=== PATIENT | male | born 1960 | race African-American/Black ===

== ENCOUNTER 2016-09-07 19:05 | Emergency (ER) | payer OTHER ==
[2016-09-07 19:15] VITALS: BP 158/99; PULSE 82; TEMP 98.1; BMI 32.5
--- NOTE | 2016-09-07 19:26 | PDOC ---
History of Present Illness - General History Source: Patient Exam Limitations: No Limitations <Arturo Ventura Tello - Last Filed: 09/07/16 19:36> - History of Present Illness Initial Comments: 09/07/16 19:37 The patient is a 55 year old male, with a significant past medical history of, who presents to the emergency department with increased low back pain for 2 days. He states he weight lifts at the gym and feels that his recent workouts may have exacerbated his pain. The patient reports experiencing this pain in the past after a workout. He denies any radiation of pain. He denies lower extremity weakness or tingling. He denies chest pain, shortness of breath, headache and dizziness. He denies fever, chills, nausea, vomit, diarrhea and constipation. 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 MEDICATIONS: reviewed ALLERGIES: As per nursing notes General: No fevers or chills, no weakness, no weight loss HEENT: No change in vision. No sore throat,. No ear pain CardioVascular: No chest pain or shortness of breath Respiratory:No cough, or wheezing. Gastrointestinal: no nausea, vomiting, diarrhea or constipation, No rectal bleeding Genitourinary: No dysuria, hematuria, or frequency Musculoskeletal: (+) lumbar pain. No joint pain or swelling Neurologic: No headache, vertigo, dizziness or loss of consciousness Psychiatric: No depression Skin: No rashes or easy bruising Endocrine: no increased thirst or abnormal weight change Allergic: no skin or latex allergy All other systems reviewed and normal GENERAL: The patient is awake, alert, and fully oriented, in no acute distress. HEAD: Normal with no signs of trauma. EYES: Pupils equal, round and reactive to light, extraocular movements intact, sclera anicteric, conjunctiva clear. EXTREMITIES: Normal range of motion, no edema. NEUROLOGICAL: Normal speech, normal gait. PSYCH: Normal mood, normal affect. MUSCULOSKELETAL: (+) Tenderness to palpation and spasm at right paraspinal area. No tenderness over sciatic notch. no spinal tenderness at thoracic, lumbar, or sacral regions. SKIN: Warm, Dry, normal turgor, no rashes or lesions noted. <Renata Giordano - Last Filed: 09/07/16 19:37> - General Chief Complaint: Pain, Acute Stated Complaint: BACK PAIN Time Seen by Provider: 09/07/16 19:26 Past History - Past Medical History Anemia: No Asthma: No Cancer: No Cardiac Disorders: No CVA: No COPD: No CHF: No Dementia: No Diabetes: No GI Disorders: No Disorders: No HTN: Yes Hypercholesterolemia: No Liver Disease: No Seizures: No Thyroid Disease: No - Immunization History Td Vaccination: Yes Immunization Up to Date: Yes - Psycho/Social/Smoking Cessation Hx Anxiety: No Suicidal Ideation: No Smoking Status: Yes Smoking History: Current every day smoker Have you smoked in the past 12 months: Yes Number of Cigarettes Smoked Daily: 20 Information on smoking cessation initiated: Yes 'Breaking Loose' booklet given: 09/07/16 Hx Alcohol Use: No (RARELY) Drug/Substance Use Hx: No Substance Use Type: None Hx Substance Use Treatment: No <Arturo Ventura I - Last Filed: 09/07/16 19:36> <Renata Giordano - Last Filed: 09/07/16 19:37> - Past Medical History Allergies/Adverse Reactions: Allergies Allergy/AdvReac Type Severity Reaction Status Date / Time No Known Allergies Allergy Verified 03/30/16 09:50 Home Medications: Ambulatory Orders Naproxen [Naprosyn -] 500 mg PO BID #14 tablet 09/07/16 *Physical Exam - Vital Signs Last Vital Signs Temp Pulse Resp BP Pulse Ox 98.1 F 82 16 158/99 98 09/07/16 19:10 09/07/16 19:10 09/07/16 19:10 09/07/16 19:10 09/07/16 19:10 <Arturo Ventura I - Last Filed: 09/07/16 19:36> - Vital Signs Last Vital Signs Temp Pulse Resp BP Pulse Ox 98.1 F 82 16 158/99 98 09/07/16 19:10 09/07/16 19:10 09/07/16 19:10 09/07/16 19:10 09/07/16 19:10 <Renata Giordano - Last Filed: 09/07/16 19:37> *DC/Admit/Observation/Transfer - Discharge Dispostion Admit: No <Arturo Ventura I - Last Filed: 09/07/16 19:36> - Attestations Scribe Attestion: 09/07/16 19:37 Documentation prepared by Renata Giordano, acting as biomedical engineer for Arturo Ventura MD <Renata Giordano - Last Filed: 09/07/16 19:37> Diagnosis at time of Disposition: Back pain without radiation - Discharge Dispostion Disposition: HOME Condition at time of disposition: Stable - Prescriptions Prescriptions: Naproxen [Naprosyn -] 500 mg PO BID #14 tablet - Referrals Referrals: Jose F Gray MD [Primary Care Provider] - - Patient Instructions Printed Discharge Instructions: Low Back Pain Additional Instructions: Take naproxen 1 tablet twice a day with food for the low back pain take the naproxen for one week. If not better in 1 week follow-up with your primary care doctor No working out at the gym or work until Sunday of next week. Return to the emergency department immediately with ANY new, persistent or worsening symptoms. Continue any medications as previously prescribed by your physician. You should follow up with your primary doctor as soon as possible regarding today's emergency department visit. . Please make sure your doctor reviews the results of your emergency evaluation. Thank you for coming to the Emergency Department today for your care. It was a pleasure to see you today. Please note that your evaluation is INCOMPLETE until you follow-up with your doctor. - Post Discharge Activity Work/School Note: Back to Work
[2016-09-07] MEDS ORDERED: NAPROXEN 500 MG TABLET (FP) PO ONE (19:32)
[2016-09-07] MEDS ORDERED: MAG HYDROX/AL HYDROX/SIMETH 355 ML ORAL.SUSP PO ONE (19:33)
[2016-09-07] MEDS ORDERED: MAG HYDROX/AL HYDROX/SIMETH 30 ML UNIT-DOSE CUP ONE (19:35)
[2016-09-07] MEDS ORDERED: NAPROXEN 500 MG TABLET (FP) ONE (19:35)
== END 2016-09-07 19:42 | disposition home or self-care (01) ==
LOC: FER 19:05
DX: M54.9 Dorsalgia, unspecified (principal)
CPT/HCPCS: 99282-25

== ENCOUNTER 2016-12-03 23:54 | Emergency (ER) | payer OTHER ==
[2016-12-04 00:02] VITALS: BP 132/78; PULSE 81; TEMP 98.6; BMI 31.0
--- NOTE | 2016-12-04 00:46 | PDOC ---
History of Present Illness - General Chief Complaint: Eye Problem Stated Complaint: FUNGUS ON BOTH FEET/PUS FROM LEFT EYE Time Seen by Provider: 12/04/16 00:06 - History of Present Illness Initial Comments: This 55-year-old man with a history of hypertension but no other significant issues presents with several week history of pruritic rash of bilateral feet and a few day history of crusting of his eyelids (left greater than right). No recent upper respiratory infection/fever. Patient describes mild discomfort associated with the inflammation of his eyelashes. No history of change in visual acuity Patient has been given 1% ketoconazole cream for his foot rash. He states that this has been inadequate for control of the itching and scaling of the rash. He has a small area of scaling, pruritic rash of the left proximal lower leg but no other examples of this no history of rash of the groin. Past History - Past Medical History Allergies/Adverse Reactions: Allergies Allergy/AdvReac Type Severity Reaction Status Date / Time No Known Allergies Allergy Verified 12/03/16 23:56 Home Medications: Ambulatory Orders Terbinafine HCl 250 mg PO DAILY #14 tablet 12/04/16 Tobramycin 0.3% Ophth Soln [Tobrex Ophthalmic Solution -] 1 drop OU Q4HWA #1 bottle 12/04/16 Anemia: No Asthma: No Cancer: No Cardiac Disorders: No CVA: No COPD: No CHF: No Dementia: No Diabetes: No GI Disorders: No Disorders: No HTN: Yes Hypercholesterolemia: No Liver Disease: No Seizures: No Thyroid Disease: No - Immunization History Td Vaccination: Yes Immunization Up to Date: Yes - Psycho/Social/Smoking Cessation Hx Anxiety: No Suicidal Ideation: No Smoking Status: Yes Smoking History: Current every day smoker Have you smoked in the past 12 months: Yes Number of Cigarettes Smoked Daily: 20 Information on smoking cessation initiated: Yes 'Breaking Loose' booklet given: 05/21/15 Hx Alcohol Use: No Drug/Substance Use Hx: No Substance Use Type: None Hx Substance Use Treatment: No Review of Systems - Review of Systems Able to Perform ROS?: Yes *Physical Exam - Vital Signs Last Vital Signs Temp Pulse Resp BP Pulse Ox 98.6 F 81 16 132/78 100 12/03/16 23:57 12/03/16 23:57 12/03/16 23:57 12/03/16 23:57 12/03/16 23:57 - Physical Exam Comments: GENERAL: HEAD: Normal with no signs of trauma. EYES: PERRLA, EOMI, sclera anicteric, bilateral conjunctival erythema (left greater than right); mild crusting of eyelashes. ENT: Ears normal, nares patent, oropharynx clear without exudates. Dry mucous membranes. NECK: Normal range of motion, supple without lymphadenopathy, JVD, or masses. LUNGS: Breath sounds equal, clear to auscultation bilaterally. No wheezes, and no crackles. HEART:Regular rate and rhythm, normal S1 and S2 without murmur, rub or gallop. ABDOMEN:.normal bowel sounds No guarding,tenderness or rebound.No masses No distention. EXTREMITIES: Normal range of motion, no edema. No clubbing or cyanosis. No erythema, or tenderness. NEUROLOGICAL: Cranial nerves II through XII grossly intact. Normal speech. No focal neurological deficits. MUSCULOSKELETAL: Back non-tender to palpation, no CVA tenderness SKIN: Scaly rash in the interdigital areas of bilateral feet and distal portions of plantar surfaces. No other rash evident Medical Decision Making - Medical Decision Making This 55-year-old man presents with 2 separate problems: A few day history of crusting and mild inflammation of eyelash margins of both eyes (left greater than right) and a persistent, pruritic, scaly rash of his feet. The ocular problem does not appear to be associated with any ongoing viral infection. Exam shows mild conjunctival inflammation and crusting of eyelashes. Clinical presentation here is most consistent with acute conjunctivitis and will be treated with tobramycin ophthalmic solution. 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 Work documentation has been provided for him. Patient's dermatological problem appears to be tenia pedis. He has had treatment for several weeks with ketoconazole cream but this does not appear to be effective (prescribed by his PMD). Prescription for terbinafine tablets 250 mg to be taken daily for 2 weeks will be sent to his pharmacy. Meanwhile, the patient should make plans to follow-up with his PMD within 1 week *DC/Admit/Observation/Transfer Diagnosis at time of Disposition: Tinea pedis of both feet Acute conjunctivitis of both eyes Qualifiers: Acute conjunctivitis type: bacterial Qualified Code(s): H10.33 - Unspecified acute conjunctivitis, bilateral - Discharge Dispostion Disposition: HOME Condition at time of disposition: Stable - Prescriptions Prescriptions: Terbinafine HCl 250 mg PO DAILY #14 tablet Tobramycin 0.3% Ophth Soln [Tobrex Ophthalmic Solution -] 1 drop OU Q4HWA #1 bottle - Patient Instructions Printed Discharge Instructions: Athlete's Foot, DI for Conjunctivitis Additional Instructions: Lamisil tablets 250 mg once daily for 2 weeks Tobrex ophthalmic solution 1 drop in each eye every 4 hours while awake for the next week No work until eye infection is treated for 2 days Follow-up with Dr. Gray within the next 2 weeks Return here if symptoms worsen - Post Discharge Activity Work/School Note: Back to Work
== END 2016-12-04 01:38 | disposition home or self-care (01) ==
LOC: FER 23:54
DX: H10.33 Unspecified acute conjunctivitis, bilateral (principal); B35.3 Tinea pedis; I10 Essential (primary) hypertension; F17.210 Nicotine dependence, cigarettes, uncomplicated
CPT/HCPCS: 99281-25

== ENCOUNTER 2017-01-20 10:19 | Emergency (ER) | payer OTHER ==
--- NOTE | 2017-01-20 10:22 | PDOC ---
History of Present Illness - General Chief Complaint: Rash Stated Complaint: RASH Time Seen by Provider: 01/20/17 10:22 History Source: Patient Exam Limitations: No Limitations - History of Present Illness Initial Comments: 56 yo M treated for tinea pedis in November of this year presents with worsening rash. He states that when he took the terbinafine, initially the rash to his foot improved, but after he finished the prescription, it returned, but not only to his left foot. He has similar lesions to the right foot, and scattered over his limbs and trunk that have developed over the past few weeks. He states that he has not been wearing white socks as he was instructed. He also wears shoes without socks as well. Denies fever, chills, swelling of his skin. Rash is extremely itchy. He has tried benadryl cream which did not help. He has also been applying lotions and vaseline for the itching. Past History - Past Medical History Allergies/Adverse Reactions: Allergies Allergy/AdvReac Type Severity Reaction Status Date / Time No Known Allergies Allergy Verified 12/03/16 23:56 Home Medications: Ambulatory Orders Griseofulvin, Microsize [Griseofulvin] 500 mg PO BID #84 tablet 01/20/17 Hydroxyzine HCl [Atarax -] 25 mg PO QID PRN #28 tablet 01/20/17 Anemia: No Asthma: No Cancer: No Cardiac Disorders: No CVA: No COPD: No CHF: No Dementia: No Diabetes: No GI Disorders: No Disorders: No HTN: Yes Hypercholesterolemia: No Liver Disease: No Seizures: No Thyroid Disease: No - Immunization History Td Vaccination: Yes Immunization Up to Date: Yes - Suicide/Smoking/Psychosocial Hx Smoking Status: Yes Smoking History: Current every day smoker Have you smoked in the past 12 months: Yes Number of Cigarettes Smoked Daily: 20 'Breaking Loose' booklet given: 05/21/15 Hx Alcohol Use: No Drug/Substance Use Hx: No Substance Use Type: None Hx Substance Use Treatment: No Review of Systems - Review of Systems Able to Perform ROS?: Yes Comments:: GENERAL/CONSTITUTIONAL: No fever or chills. No weakness. MUSCULOSKELETAL: No joint or muscle swelling or pain. No neck or back pain. SKIN: +Rash. ALLERGIC/IMMUNOLOGIC: No hives or skin allergy. *Physical Exam - Physical Exam Comments: GENERAL: Awake, alert, and fully oriented, in no acute distress EYES: PERRLA, EOMI, sclera anicteric, conjunctiva clear ENT: Auricles normal inspection, hearing grossly normal, nares patent, oropharynx clear without exudates. Moist mucosa. No mucosal lesions. EXTREMITIES: Normal range of motion, no edema. No clubbing or cyanosis. No cords , erythema, or tenderness NEUROLOGICAL: Cranial nerves II through XII grossly intact. Normal speech, normal gait SKIN: Warm, Dry, normal turgor. +Scattered scaly hyperpigmented lesions to the trunk, extremities, and feet. Medical Decision Making - Medical Decision Making Rash is consistent with tinea corporis. As the terbinafine did not completely resolve the infection, will give him a 6 week course of griseofulvin. Derm f/u ( he has seen Dr. Celaya in the past). *DC/Admit/Observation/Transfer Diagnosis at time of Disposition: Tinea corporis - Discharge Dispostion Disposition: HOME Condition at time of disposition: Stable Admit: No - Prescriptions Prescriptions: Hydroxyzine HCl [Atarax -] 25 mg PO QID PRN #28 tablet PRN Reason: For Itching Griseofulvin, Microsize [Griseofulvin] 500 mg PO BID #84 tablet - Referrals Referrals: Geraldine Celaya MD [Staff Physician] - - Patient Instructions Printed Discharge Instructions: DI for Tinea Corporis Additional Instructions: For soap, try Dr. Singh's Tea Tree oil soap(helps to kill fungus) or vanicream (no scents or chemicals in it). When you get out of the shower, make sure your skin is completely dry. Wear cotton socks and undershirts. Atarax for itching. Griseofulvin to treat the fungal infection- you will take this for a total of 4 weeks. - Post Discharge Activity Forms/Work/School Notes: Back to Work
[2017-01-20 10:29] VITALS: BP 139/94; PULSE 80; TEMP 98.6; BMI 31.7
== END 2017-01-20 10:54 | disposition home or self-care (01) ==
LOC: FER 10:19
DX: B35.4 Tinea corporis (principal); I10 Essential (primary) hypertension; F17.210 Nicotine dependence, cigarettes, uncomplicated
CPT/HCPCS: 99281-25

== ENCOUNTER 2017-08-07 08:35 | Inpatient (IN) | payer OTHER ==
--- NOTE | 2017-08-07 07:54 | HP ---
[facility] - Chief Complaint Chief Complaint: left hip pain - Past Medical History Allergies/Adverse Reactions: Allergies Allergy/AdvReac Type Severity Reaction Status Date / Time No Known Allergies Allergy Verified 07/31/17 15:57 - Current Medications Current Medications: Home Medications Medication Instructions Recorded Griseofulvin, Microsize 500 mg PO BID #84 tablet 01/20/17 [Griseofulvin] hydrOXYzine HCL [Atarax -] 25 mg PO QID PRN #28 tablet 01/20/17 Acitretin 25 mg PO DAILY 07/31/17 Amlodipine Besylate 10 mg PO DAILY 07/31/17 Satellite Physical Exam - Physical Examination General Appearance: Well Nourished, Well Developed, Alert & Oriented x3 ENT: Clear Lung: Normal air movement Heart: Regular rate & rhythm Extremities: Other (left hip- + ttp, decr rom, nvi xrays show grade 4 hip djd) Neurological: Intact, Alert, Oriented Satellite Impression/Plan - Impression/Plan Impression: left hip djd Operative Procedure: left anderson thr Date to be Performed: 08/07/17
[2017-08-07] MEDS ORDERED: MIDAZOLAM HCL 2 MG/2 ML SINGLE DOSE VIAL ONE ×2 (09:12→10:34)
[2017-08-07] MEDS ORDERED: PROPOFOL 20 ML ONE ×2 (09:12)
[2017-08-07] MEDS ORDERED: DEXAMETHASONE SOD PHOSPHATE 4 MG/1 ML VIAL ONE (09:13)
[2017-08-07] MEDS ORDERED: ONDANSETRON 4 MG/2 ML VIAL ONE (09:13)
[2017-08-07] MEDS ORDERED: LIDOCAINE HCL/PF 2% SDV 5ML VIAL ONE (09:13)
[2017-08-07] MEDS ORDERED: TRANEXAMIC ACID 1000 MG/10 ML VIAL ONE (09:13)
[2017-08-07] MEDS ORDERED: ceFAZolin SODIUM 1 GM VIAL ONE (09:13)
[2017-08-07] MEDS ORDERED: oxyCODONE HCL 10 MG SUSTAINED ACTING TABLET PO ONE (09:21)
[2017-08-07] MEDS ORDERED: CEFAZOLIN 2 GM in DEXTROSE 5%-WATER - 50 ML IVPB ONE (09:21)
[2017-08-07] MEDS ORDERED: GABAPENTIN 300 MG CAPSULE (FP) PO ONE (09:21)
[2017-08-07] MEDS ORDERED: CELECOXIB 200 MG CAPSULE PO ONE (09:21)
[2017-08-07] MEDS ORDERED: TRANEXAMIC ACID 1000 MG/10 ML VIAL IVPUSH ONE (09:21)
[2017-08-07 09:22] VITALS: BMI 32.1
[2017-08-07] MEDS ORDERED: BUPIVACAINE HCL/PF (5 MG/ML) 30 ML VIAL IJ ONE (10:34)
[2017-08-07] MEDS ORDERED: BUPIVACAINE HCL/PF 0.5% (5MG/ML) 10 ML VIAL ONE (11:34)
[2017-08-07] MEDS ORDERED: VANCOMYCIN 1,000 MG VIAL (RESTRICTED TO ID ONLY) IVPB ONE (12:47)
[2017-08-07] MEDS ORDERED: hydrOXYzine HCL 25 MG TABLET (FP) PO PRN (13:03)
[2017-08-07] MEDS ORDERED: MAG HYDROX/AL HYDROX/SIMETH 30 ML UNIT-DOSE CUP PO PRN (13:05)
[2017-08-07] MEDS ORDERED: ONDANSETRON 4 MG/2 ML VIAL IVPUSH PRN ×2 (13:05→14:22)
[2017-08-07] MEDS ORDERED: MAGNESIUM HYDROX 2400MG/30ML ORAL SUSPENSION 30 ML CUP PO PRN (13:05)
--- NOTE | 2017-08-07 13:07 | OP ---
Operative Note - Note: Operative Date: 08/07/17 ([place]) Pre-Operative Diagnosis: left hip djd Operation: left anderson thr Post-Operative Diagnosis: Same as Pre-op Surgeon: Vignesh Marvin Softball Winder: Kane Álvarez Anesthesiologist/COMPLETIONS ENGINEER: Jake Kerr Anesthesia: Spinal, Local Specimens Removed: femoral head Estimated Blood Loss (mls): 100 Operative Report Dictated: Yes
[2017-08-07] MEDS ORDERED: LACTATED RINGERS SOLUTION 1,000 ML IV SCH (13:15)
--- NOTE | 2017-08-07 14:09 | SPEC ---
DATE OF OPERATION: 08/07/2017 PREOPERATIVE DIAGNOSIS: Degenerative joint disease, left hip. POSTOPERATIVE DIAGNOSIS: Degenerative joint disease, left hip. PROCEDURE PERFORMED: Left total hip replacement with robotic-assisted navigation (MAKOplasty). SURGICAL ATTENDING: Vignesh Marvin MD AIRPLANE CLEANER: BLESSING Lord ANESTHESIA: Regional and spinal. CLOSURE: A Fanny total hip system with a No. 7 Accolade II stem, a 36+7.5 ceramic head, and a 56 press-fit acetabulum. No. 1 Vicryl for fascia, 0 and 2-0 subcutaneous, 3-0 Monocryl subcuticular with skin glue for skin, 4-0 undyed Vicryl for pin sites. ESTIMATED BLOOD LOSS: Less than 100 mL. COMPLICATIONS: None. CONDITION: To the recovery room in stable condition. DESCRIPTION OF PROCEDURE: The patient was taken to the operating room on August 07, 2017. General and regional anesthesia was administered by the anesthesiologist. IV Kefzol and TXA were administered prophylactically prior to the case. The patient was placed in the lateral decubitus position will all prominences well-padded. The left hip area was prepped and draped in the usual sterile fashion. Using 3 small stab incisions over the iliac crest, 3 threaded pins were drilled in power fashion through the 2 tables of the crest. These pins were fastened and the navigation array for the Chago navigation system. Next, a 12 to 15-cm curved longitudinal incision over the posterolateral aspect of the greater trochanter was incised. Hemostasis was achieved with Bovie cautery. Sharp dissection was carried down to level of the fascia. The fascia was opened the entire length of the incision, spreading the fibers of the gluteus jase in the direction of origin. A Charnley retractor was placed in this layer. Care was taken not to impale the sciatic nerve. The short external rotators were detached off the insertion of the greater trochanter and peeled off the capsule. A posterior capsulotomy was then performed. A check point was malleted into the greater trochanter and a point on the inferior pole of the patella was obtained as well. These 2 points were used to assess the preoperative offset and limb lengths of the hip. The hip was then dislocated. The femoral neck was then osteotomized down to the appropriate level as directed by the navigation device. Anterior and posterior retractors were placed, exposing the acetabulum. A circumferential labral excision was performed. A check point was malleted into the acetabulum as well. Multiple sites inside the acetabulum and around the rim were utilized to register the acetabulum with the navigation device. An excellent registration of less than 0.5 mm was obtained. The hip was then reamed with the appropriate reamer down to the appropriate depth, with the appropriate orientation and version as assessed on our preoperative plan for this patient. The reamer was removed and the acetabulum was inspected to have good bleeding surfaces throughout. The real acetabular cup was then malleted down into place, with the holes in the appropriate position, until an excellent fixation was obtained. No screws were necessary. The navigation device ensured appropriate orientation and version, with the depth as predetermined. The appropriate liner was then clipped into place. Attention was directed to the femur. The proximal femur was prepared by use a box chisel, a canal finder and serial broaches until the broach achieved excellent rigidity in the proximal femur with the appropriate version being applied. A calcar planer was used to smooth off the calcar flush with the trial components. A trial reduction with the appropriate head was done, and the hip was reduced. The hip was taken through a range of motion from full extension with external rotation to marked flexion, and was stable at 90 degrees of flexion. It was stable to marked abduction and internal rotation, with a positive hang test and negative telescoping. Limb lengths were ascertained visually as well as with the navigation device to be within the targeted range for this patient. The trial component was removed. The real component was then malleted into place. The head was cold welded to the trunnion, and the hip was reduced. Range of motion, stability and limb lengths were as described in the trial component. Then the hip was pulse antibiotic irrigated. Vancomycin powder was placed in the hip joint. The capsule was closed. The fascia was then closed as well using number 1 Vicryl interrupted suture, 0 and 2-0 subcutaneous, and 3-0 V-Loc for the skin. 4-0 undyed Vicryl was used to close the pin sites after the pins were removed. All check points were also removed. Sterile Aquacel dressing was applied. The patient was awakened from anesthesia and transferred into the supine position. Bilateral SCDs and an abduction pillow were placed. X-rays revealed excellent position of the components. The patient was transferred to the recovery room in stable condition, with no complications. Estimated blood loss was less than 100 mL. Denise [id number]
[2017-08-07] MEDS ORDERED: PROMETHAZINE HCL 25 MG/1 ML VIAL IVPB PRN (14:22)
[2017-08-07] MEDS ORDERED: oxyCODONE HCL 5 MG TABLET PO PRN ×3 (14:22→18:11)
[2017-08-07] MEDS ORDERED: ACETAMINOPHEN 325 MG TABLET (FP) PO SCH (14:30)
[2017-08-07] MEDS: ACETAMINOPHEN 325 MG TABLET (FP) PO SCH ×2 (14:45→20:52)
[2017-08-07] MEDS: CEFAZOLIN 2 GM/D5W 2 GM/50 ML ML IVPB SCH (20:51)
[2017-08-07] MEDS: oxyCODONE HCL 10 MG SUSTAINED ACTING TABLET PO SCH (21:46)
[2017-08-07] MEDS: SENNOSIDES/DOCUSATE COMBO (SENNA PLUS) TABLET (UD) PO SCH (21:46)
[2017-08-07] MEDS: GABAPENTIN 300 MG CAPSULE (FP) PO SCH (21:46)
[2017-08-07] MEDS ORDERED: GRISEOFULVIN MICROSIZE 500 MG PO SCH (22:00)
[2017-08-07] MEDS ORDERED: [UNRECOGNIZED DRUG - OTHER] PO SCH (22:00)
[2017-08-08] MEDS: ACETAMINOPHEN 325 MG TABLET (FP) PO SCH ×4 (03:21→23:02)
[2017-08-08] MEDS: CEFAZOLIN 2 GM/D5W 2 GM/50 ML ML IVPB SCH (03:22)
[2017-08-08] MEDS: oxyCODONE HCL 5 MG TABLET PO PRN ×2 (03:29→17:30)
[2017-08-08] MEDS: ASPIRIN 325 MG TABLET PO SCH (08:00)
--- NOTE | 2017-08-08 08:11 | PN ---
Progress Note (short form) - Note Progress Note: Ortho Pt seen and examined s/p left anderson thr pod #1 Selected Entries 04/13/16 08/08/17 06:00 06:00 Temperature 98.8 F 98.3 F Pulse Rate 78 89 Respiratory 20 20 Rate Blood Pressure 115/68 141/68 dressing c/d/i, calf soft, nt nvi cbc pending a/p PT hip precautions dvt ppx pain control d/c home tomorrow if stable
[2017-08-08 08:51] LABS: HEMATOCRIT 36.4 % (35.4-49); HEMOGLOBIN 12.6 GM/dl (11.7-16.9); MCH 33.5 pg (25.7-33.7); MCHC 34.7 g/dl (32.0-35.9); MEAN CELL VOLUME 96.6 fl (80-96); PLATELET COUNT 204 K/MM3 (134-434); RBC 3.76 M/mm3 (4.00-5.60); RDW 11.8 % (11.9-15.9); WHITE BLOOD COUNT 8.4 K/mm3 (4.0-10.8)
[2017-08-08] MEDS: PANTOPRAZOLE 40 MG TABLET (FP) PO SCH (09:29)
[2017-08-08] MEDS: SENNOSIDES/DOCUSATE COMBO (SENNA PLUS) TABLET (UD) PO SCH ×2 (09:29→23:04)
[2017-08-08] MEDS: oxyCODONE HCL 10 MG SUSTAINED ACTING TABLET PO SCH ×2 (09:29→23:03)
[2017-08-08] MEDS: GABAPENTIN 300 MG CAPSULE (FP) PO SCH ×2 (09:29→23:04)
[2017-08-08] MEDS: MULTIVITAMINS (DAILY MVI) TABLET (FP) PO SCH (09:30)
[2017-08-08] MEDS ORDERED: ACITRETIN 25 MG PO SCH (10:00)
[2017-08-08] MEDS: amLODIPine BESYLATE 10 MG TABLET (FP) PO SCH (10:00)
--- NOTE | 2017-08-08 11:48 | PN ---
Progress Note, Physician Chief Complaint: s/p left total hip replacement with [place] History of Present Illness: under spinal anesthesia and paravertebral block post op day one - Current Medication List Current Medications: Active Medications Acetaminophen (Tylenol -) 650 mg PO Q6H [facility] Stop: 08/10/17 14:44 Last Admin: 08/08/17 09:30 Dose: 650 mg Al Hydroxide/Mg Hydroxide (Mylanta Oral Suspension -) 30 ml PO Q4H PRN PRN Reason: DYSPEPSIA Amlodipine Besylate (Norvasc -) 10 mg PO DAILY [facility] Aspirin (Asa -) 325 mg PO DAILY@0800 [facility] Last Admin: 08/08/17 08:00 Dose: 325 mg Fentanyl (Sublimaze Injection -) 50 mcg IVPUSH [id number] PRN PRN Reason: PAIN-PACU ORDER X 4 DOSES ONLY Gabapentin (Neurontin -) 300 mg PO BID [facility] Last Admin: 08/08/17 09:29 Dose: 300 mg Hydroxyzine HCl (Atarax -) 25 mg PO QID PRN PRN Reason: FOR ITCHING Magnesium Hydroxide (Milk Of Magnesia -) 30 ml PO PRN PRN PRN Reason: CONSTIPATION Multivitamins/Minerals/Vitamin C (Tab-A-Vit -) 1 tab PO DAILY [facility] Last Admin: 08/08/17 09:30 Dose: 1 tab Non-Formulary Medication (Acitretin [Acitretin]) 25 mg PO DAILY [facility] Non-Formulary Medication (Griseofulvin, Microsize [Griseofulvin]) 500 mg PO BID [facility] Ondansetron HCl (Zofran Injection) 4 mg IVPUSH Q6H PRN PRN Reason: NAUSEA Oxycodone HCl (Oxycontin -) 10 mg PO BID [facility] Stop: 08/10/17 14:23 Last Admin: 08/08/17 09:29 Dose: 10 mg Oxycodone HCl (Roxicodone -) 15 mg PO Q3H PRN PRN Reason: PAIN LEVEL 6-10 Last Admin: 08/07/17 18:32 Dose: 15 mg Oxycodone HCl (Roxicodone -) 10 mg PO Q3H PRN PRN Reason: PAIN LEVEL 1-5 Last Admin: 08/08/17 03:29 Dose: 10 mg Pantoprazole Sodium (Protonix -) 40 mg PO DAILY [facility] Last Admin: 08/08/17 09:29 Dose: 40 mg Promethazine HCl (Phenergan Injection -) 12.5 mg IVPB Q6H PRN PRN Reason: NAUSEA-FOR RESCUE AFTER 15 MIN Senna/Docusate Sodium (Pericolace -) 2 tablet PO BID [facility] Last Admin: 08/08/17 09:29 Dose: 2 tablet - Objective Vital Signs: Vital Signs Temperature 98.3 F 08/08/17 06:00 Pulse Rate 89 08/08/17 06:00 Respiratory Rate 20 08/08/17 09:00 Blood Pressure 141/68 08/08/17 06:00 O2 Sat by Pulse Oximetry (%) 92 L 08/08/17 09:00 Constitutional: Yes: Well Nourished Cardiovascular: Yes: WNL Respiratory: Yes: WNL Gastrointestinal: Yes: WNL Labs: CBC, BMP 08/08/17 08:00 Assessment/Plan Pain adequately controlled, no headache or other adverse effect of anesthetic, dept of anesthesia will sign off care at this time.
[2017-08-09] MEDS: ACETAMINOPHEN 325 MG TABLET (FP) PO SCH ×2 (05:17→08:45)
[2017-08-09] MEDS: oxyCODONE HCL 5 MG TABLET PO PRN (06:32)
[2017-08-09] MEDS: ASPIRIN 325 MG TABLET PO SCH (07:59)
--- NOTE | 2017-08-09 08:24 | PN ---
Progress Note (short form) - Note Progress Note: Ortho Pt seen and examined s/p left anderson thr pod #2 Selected Entries 08/09/17 06:00 Temperature 98.8 F Pulse Rate 98 H Respiratory 18 Rate Blood Pressure 117/68 Laboratory Tests 08/08/17 08:00 WBC 8.4 D Hgb 12.6 D Hct 36.4 Plt Count 204 dressing c/d/i, calf soft, nt nvi a/p PT hip precautions dvt ppx pain control d/c home today f/u in 1 week
--- NOTE | 2017-08-09 08:25 | DS ---
Physical Examination Vital Signs: Vital Signs Temperature 98.8 F 08/09/17 06:00 Pulse Rate 98 H 08/09/17 06:00 Respiratory Rate 18 08/09/17 06:00 Blood Pressure 117/68 08/09/17 06:00 O2 Sat by Pulse Oximetry (%) 90 L 08/09/17 06:00 Discharge Summary Reason For Visit: OSTEOARTHRITIS Procedures: Principal: s/p left anderson thr Hospital Course: admitted for elective left anderson thr, uneventful post-op, stable for d/c Condition: Good - Instructions Diet, Activity, Other Instructions: Post-op Instructions-Total Hip Replacement Call the office for a follow-up appointment in 1 week - [phone] Aspirin 325mg daily for 6 weeks. Pain medication was sent into your pharmacy. Apply Graduated Compression Stockings (TEDs) to both lower extremities- remove daily for hygiene ONLY Apply Sequential Compression Device (SCDs) to both Lower extremities remove for PT and hygiene ONLY Apply cold packs to affected area for 15 minutes every 2 hours. Physical Therapist will come to your home for the first 5 days. You will be set up with outpatient PT at your first post-operative visit. Patient may ambulate as tolerated-encourage self care (at least every 2-3 hours while awake) with walker or cane Maintain Aquacel (waterproof) dressing to operative wound (will be removed by surgeon at first office visit) Shower with Aquacel dressing in place-if Aquacel integrity compromised, remove and apply dry sterile dressing and notify Orthopedist. DO NOT SHOWER unless Orthopedists approves without Aquacel dressing CONTACT THE OFFICE FOR ANY CHANGE IN YOUR CONDITION (for example-fever greater than 102 degrees, excessive bleeding from operative site, purulent drainage, severe swelling or pain) GO TO THE EMERGENCY ROOM IF THERE IS A MEDICAL EMERGENCY Hip Precautions: * Keep a rolled towel under affected heel while in bed or chair (to keep knee in extension) * Dependent upon approach: * Posterior - do not cross legs; do not sit on low chairs or toilets. * If you have any questions, please do not hesitate to call the office - [phone]. Referrals: Vignesh Marvin MD [Staff Physician] - Disposition: VNS/HOME HEALTH CARE - Home Medications Comprehensive Discharge Medication List: Ambulatory Orders Griseofulvin, Microsize [Griseofulvin] 500 mg PO BID #84 tablet 01/20/17 hydrOXYzine HCL [Atarax -] 25 mg PO QID PRN #28 tablet 01/20/17 Acitretin 25 mg PO DAILY 07/31/17 Amlodipine Besylate 10 mg PO DAILY 07/31/17 Aspirin [ASA -] 325 mg PO DAILY@0800 tablet 08/07/17 Oxycodone HCl/Acetaminophen [Percocet 5-325 mg Tablet] 1 - 2 tab PO Q6H #50 tab MDD 8 08/07/17
[2017-08-09 08:26] LABS: HEMATOCRIT 32.5 % (35.4-49); HEMOGLOBIN 10.8 GM/dl (11.7-16.9); MCH 32.2 pg (25.7-33.7); MCHC 33.1 g/dl (32.0-35.9); MEAN CELL VOLUME 97.1 fl (80-96); MEAN PLT VOLUME 8.3 fl (7.5-11.1); PLATELET COUNT 175 K/MM3 (134-434); RBC 3.35 M/mm3 (4.00-5.60); RDW 11.6 % (11.9-15.9); WHITE BLOOD COUNT 10.2 K/mm3 (4.0-10.8)
[2017-08-09] MEDS: SENNOSIDES/DOCUSATE COMBO (SENNA PLUS) TABLET (UD) PO SCH (09:57)
[2017-08-09] MEDS: oxyCODONE HCL 10 MG SUSTAINED ACTING TABLET PO SCH (09:57)
[2017-08-09] MEDS: PANTOPRAZOLE 40 MG TABLET (FP) PO SCH (09:58)
[2017-08-09] MEDS: GABAPENTIN 300 MG CAPSULE (FP) PO SCH (09:58)
[2017-08-09] MEDS: amLODIPine BESYLATE 10 MG TABLET (FP) PO SCH (09:58)
[2017-08-09] MEDS: MULTIVITAMINS (DAILY MVI) TABLET (FP) PO SCH (09:58)
[2017-08-09 14:31] VITALS: BP 128/66; PULSE 89; TEMP 98.7
--- NOTE | 2017-08-12 19:16 | PATH ---
Surgical Pathology Report Patient Name: VLAD XAVIER Med. Rec. #: [id number] /Age/Gender: 1960 (Age: 56) / M Account: [id number] Location: [facility] Taken: 08/07/2017 Received: 08/07/2017 Reported: 08/12/2017 Physicians: Vignesh Marvin M.D. Specimen(s) Received LEFT FEMORAL HEAD Clinical History Left hip osteoarthritis Final Diagnosis FEMORAL HEAD, LEFT, TOTAL HIP REPLACEMENT: DEGENERATIVE JOINT DISEASE. Electronically Signed Gladis Dueñas M.D. Gross Description Received in formalin, labeled "left femoral head," is a 4.7 x 4.7 x 4.7 cm. femoral head with a 1.2 cm in length portion of femoral neck attached. The margin of resection is smooth. There is a 3.0 cm in greatest dimension area of eburnation present. The remaining articular surface is crain-yellow and diffusely granular and nodular. The underlying trabecular bone is yellow and hard. A ambulatory services representative section is submitted in one cassette, following decalcification. 08/08/2017 [facility]08/08/2017
== END 2017-08-09 16:33 | disposition home health service (06) | DRG 470 ==
LOC: FM/S 08:35
PROVIDERS: ADMIT Orthopaedic Surgery; ATTEND Orthopaedic Surgery
PROC: 8E0W0CZ Robotic Assisted Procedure of Trunk Region, Open Approach (ICD-10-PCS; 2017-08-07)
PROC: 0SRB03A Replacement of Left Hip Joint with Ceramic Synthetic Substitute, Uncemented, Open Approach (ICD-10-PCS; principal; 2017-08-07 11:00)
DX: M16.12 Unilateral primary osteoarthritis, left hip (principal)
CPT/HCPCS: 36415; 73502-TC-LT-FY; 85027; 88304-TC; 88311-TC; 94010; 94760; 97116-GP; 97162-GP

== ENCOUNTER 2018-04-03 13:36 | Emergency (ER) | payer OTHER ==
[2018-04-03 13:51] VITALS: TEMP 98.1; BMI 33.2
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
[2018-04-03] MEDS ORDERED: IBUPROFEN 400 MG TABLET (FP) PO ONE ×2 (14:22→14:48)
== END 2018-04-03 15:29 | disposition home or self-care (01) ==
LOC: FER 13:36
CPT/HCPCS: 72050-TC-FY; 99283-25

== ENCOUNTER 2018-06-28 18:47 | Inpatient (IN) | payer OTHER ==
--- NOTE | 2018-06-28 18:59 | PDOC ---
Rapid Medical Evaluation Time Seen by Provider: 06/28/18 18:57 Medical Evaluation: Allergies Allergy/AdvReac Type Severity Reaction Status Date / Time shrimp Allergy Intermediate Rash Verified 04/03/18 13:39 06/28/18 18:57 I performed a brief in-person evaluation of this patient. Chief complaint: Bilat non-traumatic foot pain and swelling Pertinent physical exam findings: P 111. Extensive erythema and edema to bilateral lower extremities, calves tender bilaterally I have ordered the following: CBC, CMP, PT/INR, BNP. Had negative LE duplex bilat as outpatient 06/26. On Bactrim from outside hospital. Patient to proceed to the ED for further evaluation. Discharge Disposition - Diagnosis Leg swelling - Referrals Referrals: Jose F Gray MD [Primary Care Provider] - - Patient Instructions - Post Discharge Activity
[2018-06-28 19:34] LABS: BASO % 0.7 % (0-2.0); EOS % 4.2 % (0-4.5); HEMATOCRIT 38.9 % (35.4-49); HEMOGLOBIN 13.3 GM/dL (11.7-16.9); LYMPH % 22.3 % (8-40); MCH 34.9 pg (25.7-33.7); MCHC 34.1 g/dl (32.0-35.9); MEAN CELL VOLUME 102.2 fl (80-96); MEAN PLT VOLUME 8.1 fl (7.5-11.1); MONO % 9.6 % (3.8-10.2); NEUT % 63.2 % (42.8-82.8); PLATELET COUNT 223 K/MM3 (134-434); RBC 3.81 M/mm3 (4.00-5.60); RDW 12.8 % (11.9-15.9); WHITE BLOOD COUNT 8.3 K/mm3 (4.0-10.0)
[2018-06-28 19:45] LABS: URINE APPEARANCE CLEAR; URINE BILIRUBIN NEGATIVE (<2.0 mg/dL); URINE COLOR YELLOW; URINE GLUCOSE (UA) NEGATIVE (NEGATIVE); URINE KETONE TRACE (NEGATIVE); URINE LEUK ESTERASE NEGATIVE (NEGATIVE); URINE NITRITE NEGATIVE (NEGATIVE); URINE PROTEIN NEGATIVE (NEGATIVE); URINE UROBILINOGEN NEGATIVE mg/dL (0.2-1.0)
[2018-06-28 19:48] LABS: INR 0.97 (0.83-1.09); PROTHROMBIN TIME (PATIENT) 11.4 SEC (9.7-13.0)
[2018-06-28 20:47] LABS: ALBUMIN 3.5 g/dl (3.4-5.0); ALK PHOS 61 U/L (45-117); ANION GAP 6 MMOL/L (8-16); BILIRUBIN,TOTAL 0.4 mg/dL (0.2-1); BLOOD UREA NITROGEN 14 mg/dL (7-18); CALCIUM 8.5 mg/dL (8.5-10.1); CHLORIDE 108 mmol/L (98-107); CO2 27 mmol/L (21-32); CREATININE 1.1 mg/dL (0.55-1.3); GLUCOSE,RANDOM 103 mg/dL (74-106); N-TERMINAL BNP 15.1 pg/ml (5-125); POTASSIUM 4.2 mmol/L (3.5-5.1); SGOT/AST 25 U/L (15-37); SGPT/ALT 25 U/L (13-61); SODIUM 141 mmol/L (136-145); TOT PROT 6.7 g/dl (6.4-8.2)
--- NOTE | 2018-06-28 21:01 | PDOC ---
Attending Attestation - HPI HPI: The patient is a 57 year old male, with a significant PMH of Psoriasis and HTN, who presents to the emergency department today complaining of bilateral lower extremity edema, erythema, and pain for approximately 2 weeks. He describes his leg pain as a burning sensation. Patient was given Bactrim, without any relief, and Cadista, which exacerbated his symptoms. Recent doppler study was negative for DVT. The patient denies chest pain, shortness of breath, headache and dizziness. Denies fever, chills, nausea, vomit, diarrhea and constipation. Denies dysuria, frequency, urgency and hematuria. Allergies: Shrimp Past surgical history: Right total hip replacement Social history: Current smoker (half a pack a day) PCP: Dr. Jose F Gray 06/28/18 22:44 - Physicial Exam PE: GENERAL: The patient is in no acute distress. HEAD: Normal with no signs of trauma. EYES: PERRLA, EOMI, sclera anicteric, conjunctiva clear. ENT: Ears normal, nares patent, oropharynx clear without exudates. Moist mucous membranes. NECK: Normal range of motion, supple without lymphadenopathy, JVD, or masses. LUNGS: Breath sounds equal, clear to auscultation bilaterally. No wheezes, and no crackles. HEART:Regular rate and rhythm, normal S1 and S2 without murmur, rub or gallop. ABDOMEN: Soft, nontender, normoactive bowel sounds. No guarding, no rebound. No masses palpable. EXTREMITIES: +Bilateral lower extremity edema. +Bilateral lower extremity erythema. +Bilateral lower extremities tender to palpation. +Underlying psoriasis present bilaterally on lower extremities. Normal range of motion. No clubbing or cyanosis. NEUROLOGICAL: Cranial nerves II through XII grossly intact. Normal speech. No focal neurological deficits. MUSCULOSKELETAL: Back non-tender to palpation, no CVA tenderness SKIN: Warm, Dry, normal turgor, no rashes or lesions noted. 06/28/18 22:44 - Medical Decision Making Documentation prepared by ANGELA Rosales, acting as vp medical for Lizzette Watkins MD. 06/28/18 22:44 <Payton Sparks - Last Filed: 06/28/18 22:44> - Resident Resident Name: Angelita Asencio - ED Attending Attestation I have performed the following: I have examined & evaluated the patient, The case was reviewed & discussed with the resident, I agree w/resident's findings & plan, Exceptions are as noted - Medical Decision Making 06/30/18 00:23 57 yo m presenting to the ER due to lower extremity edema and erythema Pt has noted leg pain and swelling was seen by PMD, started on Bactrim Pt denies improvement in his symptoms He was also started on Steroids which he thinks severely worsened his symptoms No fevers or chills No trauma Pt is ambulatory but legs are tender to palpation 06/30/18 00:26 Laboratory Tests 06/28/18 06/28/18 06/28/18 19:18 19:18 19:20 WBC 8.3 Hgb 13.3 Hct 38.9 Plt Count 223 INR 0.97 BUN 14 Creatinine 1.1 06/30/18 00:[address] Gray Will give abx clinical Impression: cellulitis, initial presentation <Lizzette Watkins - Last Filed: 06/30/18 00:29>
[2018-06-28] MEDS ORDERED: LACTATED RINGERS SOLUTION 1000 ML INFUS.BAG IV ONE (22:21)
[2018-06-28] MEDS ORDERED: VANCOMYCIN 1 GM in D5W (PRE-DOCKED) 1,000 MG/250 ML IVPB ONE (22:21)
--- NOTE | 2018-06-28 22:27 | PDOC ---
History of Present Illness - General Chief Complaint: Edema Stated Complaint: EVALUATION Time Seen by Provider: 06/28/18 18:57 History Source: Patient Exam Limitations: No Limitations - History of Present Illness Initial Comments: 06/28/18 22:22 Pt is a 57yo M with PMH of Psoriasis, HTN presenting to ED with bilateral lower extremity swelling, erythema and pain. Pt states he has had this for a week or two now. He went to a hospital one week ago and was given Bactrim but it was not helping. He had a doppler study done 06/26 which was negative for DVT. He endorses leg pain which feels like a burning. Swelling is in the feet and calves. He denies fever, chills, chest pain, cough, SOB, palpitations, abdominal pain, n/v/d, recent travel, recent surgeries, history of clotting. PMD: Isaac PMH: see hpi PSH: bilateral hip replacement Meds: see med rec Allergies: nkda Social: smokes 1/2ppd Past History - Past Medical History Allergies/Adverse Reactions: Allergies Allergy/AdvReac Type Severity Reaction Status Date / Time shrimp Allergy Intermediate Rash Verified 04/03/18 13:39 Home Medications: Ambulatory Orders NK [No Known Home Medication] 06/29/18 Norvasc - See Protocol PO ONCE 06/29/18 Anemia: No Asthma: No Cancer: No Cardiac Disorders: No CVA: No COPD: No CHF: No Dementia: No Diabetes: No GI Disorders: No Disorders: No HTN: Yes Hypercholesterolemia: No Liver Disease: No Seizures: No Thyroid Disease: No - Surgical History Abdominal Surgery: No Appendectomy: No Cardiac Surgery: No Cholecystectomy: No Lung Surgery: No Neurologic Surgery: No Orthopedic Surgery: Yes (R THR 2017) - Immunization History Td Vaccination: Yes Immunization Up to Date: Yes - Suicide/Smoking/Psychosocial Hx Smoking Status: Yes Smoking History: Never smoked Have you smoked in the past 12 months: Yes Number of Cigarettes Smoked Daily: 10 'Breaking Loose' booklet given: 05/21/15 Hx Alcohol Use: No Drug/Substance Use Hx: No Substance Use Type: None Hx Substance Use Treatment: No Review of Systems - Review of Systems Constitutional: No: Chills, Fever, Weakness HEENTM: No: Symptoms Reported Respiratory: No: Cough, Shortness of Breath Cardiac (ROS): No: Chest Pain, Lightheadedness, Palpitations, Syncope ABD/GI: No: Symptoms Reported : No: Symptoms Reported Musculoskeletal: Yes: See HPI Integumentary: Yes: See HPI Neurological: No: Headache, Numbness, Tingling, Tremors *Physical Exam - Vital Signs Last Vital Signs Temp Pulse Resp BP Pulse Ox 98.4 F 111 H 16 133/84 99 06/28/18 18:59 06/28/18 18:59 06/28/18 18:59 06/28/18 18:59 06/28/18 18:59 - Physical Exam General Appearance: Yes: Nourished, Appropriately Dressed. No: Apparent Distress HEENT: positive: EOMI, CHANELLE, Normal ENT Inspection Neck: positive: Trachea midline, Supple Respiratory/Chest: positive: Lungs Clear, Normal Breath Sounds. negative: Crackles, Wheezing Cardiovascular: positive: Regular Rhythm, Regular Rate, S1, S2. negative: Edema , JVD, Murmur Vascular Pulses: Carotid (R): 2+, Carotid (L): 2+, Dorsalis-Pedis (R): 1+, Doralis-Pedis (L): 1+ Gastrointestinal/Abdominal: positive: Normal Bowel Sounds, Soft. negative: Distended, Guarding, Rebound, Tenderness Musculoskeletal: negative: CVA Tenderness, Vertebral Tenderness Extremity: positive: Normal Capillary Refill, Pelvis Stable, Pedal Edema ( bilateral edema with erythema and warmth, superficial ulcerations) Integumentary: positive: Normal Color, Dry, Warm, Erythema Neurologic: positive: transmission and coordination engineer II-XII NML intact, Fully Oriented, Alert, Normal Mood/ Affect, Normal Response, Motor Strength 5/5 Moderate Sedation - Procedure Monitoring Vital Signs: Procedure Monitoring Vital Signs Temperature 98.4 F 06/28/18 18:59 Pulse Rate 111 H 06/28/18 18:59 Respiratory Rate 16 06/28/18 18:59 Blood Pressure 133/84 06/28/18 18:59 O2 Sat by Pulse Oximetry (%) 99 06/28/18 18:59 ED Treatment Course - LABORATORY CBC & Chemistry Diagram: 06/28/18 19:20 06/28/18 19:18 - ADDITIONAL ORDERS Additional order review: Laboratory Results 06/28/18 06/28/18 06/28/18 19:18 19:18 19:10 PT with INR 11.40 INR 0.97 Sodium 141 Potassium 4.2 Chloride 108 H Carbon Dioxide 27 Anion Gap 6 L BUN 14 Creatinine 1.1 Creat Clearance w eGFR 69.50 Random Glucose 103 Calcium 8.5 Total Bilirubin 0.4 AST 25 ALT 25 Alkaline Phosphatase 61 B-Natriuretic Peptide 15.1 Total Protein 6.7 Albumin 3.5 Urine Color Yellow Urine Appearance Clear Urine pH 5.0 Ur Specific [place] 1.028 Urine Protein Negative Urine Glucose (UA) Negative Urine Ketones Trace H Urine Blood Negative Urine Nitrite Negative Urine Bilirubin Negative Urine Urobilinogen Negative Ur Leukocyte Esterase Negative 06/28/18 19:20 RBC 3.81 L MCV 102.2 H MCHC 34.1 RDW 12.8 MPV 8.1 Neutrophils % 63.2 Lymphocytes % 22.3 D Monocytes % 9.6 Eosinophils % 4.2 Basophils % 0.7 Medical Decision Making - Medical Decision Making 06/28/18 22:26 Pt is a 57yo M with PMH of Psoriasis, HTN presenting to ED with bilateral lower extremity swelling, erythema and pain. Pt states he has had this for a week or two now. He went to a hospital one week ago and was given Bactrim but it was not helping. He had a doppler study done 06/26 which was negative for DVT. He endorses leg pain which feels like a burning. Swelling is in the feet and calves. He denies fever, chills, chest pain, cough, SOB, palpitations, abdominal pain, n/v/d, recent travel, recent surgeries, history of clotting. Vitals: HR 111 PE: bilateral leg swelling with erythema, ttp, superficial ulcerations DVT study negative, low suspicion for PE at this time. Most likely cellulitis -labs ordered by RME. Added blood cultures -vanc, fluids -pt admitted labs wnl. *DC/Admit/Observation/Transfer Diagnosis at time of Disposition: Leg swelling Cellulitis Qualifiers: Site of cellulitis: extremity Site of cellulitis of extremity: lower extremity Laterality: unspecified laterality Qualified Code(s): L03.119 - Cellulitis of unspecified part of limb - Discharge Dispostion Condition at time of disposition: Good Decision to Admit order: Yes - Referrals - Patient Instructions - Post Discharge Activity
[2018-06-28] MEDS ORDERED: VANCOMYCIN 1 GRAM (PRE-DOCKED) 1,000 MG/250 ML BAG IVPB ONE (22:40)
[2018-06-29 03:25] VITALS: BMI 31.8
--- NOTE | 2018-06-29 09:31 | HP ---
DATE OF ADMISSION: 06/28/2018 This is a 57-year-old male well known to me, diagnosed to have hypertension, psoriasis, came to my office yesterday with complaints of leg swelling and pain, diagnosed to have cellulitis; so, sent him to the emergency room for admission. Prior to this, he was seen by field service tech, and DVT was ruled out by doing venous Doppler study. SOCIAL HISTORY: He is with child. 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 At present, he is not working. No other medical history. PHYSICAL EXAMINATION: General: Today, he is awake, alert, oriented. Vital Signs: BP 130/80, pulse 72, respirations 20, temperature 98. HEENT: Unremarkable. Neck: Supple. Lungs: Clear. Heart: S1, S2 normal. No S3 or S4. Abdomen: Soft. Legs: There is cellulitis, both legs, and also has swelling, both legs. Neurological: Grossly normal. LABORATORY REPORTS: WBC 8.3, hemoglobin 13, platelets 223. Chemistry: Sodium 141, potassium 4.2, chloride 108, BUN 14, creatinine 1.1. Albumin 3.5. Chest x-ray is not done. PLAN: IV antibiotics. ID consult. Wound culture is done. Will follow. FINAL DIAGNOSES: 1. Cellulitis, both lower extremities. 2. Psoriasis. 3. Hypertension. ESME MASTERSON M.D. [id number]
[2018-06-29] MEDS ORDERED: PIPERACILLIN/TAZOB 3.375 GM 3.375 GM in DEXTROSE 5%-WATER - 50 ML IVPB SCH (10:00)
[2018-06-29] MEDS: FUROSEMIDE 40 MG TABLET (FP) PO SCH (10:30)
[2018-06-29] MEDS ORDERED: PIPERACILLIN/TAZOBACTAM 3.375 GM VIAL IVPB ONE (10:55)
[2018-06-29] MEDS ORDERED: DEXTROSE 5%-WATER - 50 ML IVPB ONE (10:55)
[2018-06-29] MEDS: POTASSIUM CHLORIDE TABS 20 MEQ TABLET.ER (FP) PO SCH (11:08)
--- NOTE | 2018-06-29 13:14 | EKG ---
Test Reason : Blood Pressure : / mmHG Vent. Rate : 078 BPM Atrial Rate : 078 BPM P-R Int : 150 ms QRS Dur : 082 ms QT Int : 374 ms P-R-T Axes : 038 025 033 degrees QTc Int : 426 ms NORMAL SINUS RHYTHM NORMAL ECG WHEN COMPARED WITH ECG OF 06-APR-2016 14:07, NO SIGNIFICANT CHANGE WAS FOUND Confirmed by MD TANESHA, KEO ([id number]) on 06/29/2018 1:13:33 PM Referred By: Confirmed By:KEO ALMENDAREZ MD
--- NOTE | 2018-06-29 13:22 | CON.ID ---
Consult - History of Present Illness History of Present Illness: 57 y.o. male with PMH of Psoriasis (on Humira until 3 months ago as per pt), s/ p THR presenting with c/o b/l LE erythema/swelling/pain for a little over 2 weeks. States pain is mostly in upper part of LLE with ambulation. Has had outpt doppler neg for DVT. Pt is not best historian but denies taking antibiotics recently. Reports small amt of clear draining from posterior part of LLE. Has been scratching his legs intermittently. Denies fever/chills or having any other specific complaints. - History Source History Provided By: Patient Limitations to Obtaining History: No Limitations - Past Medical History Rheumatology: Yes: Other (Arthritis s/p THR) Dermatology: Yes: Other (Psoriasis) - Past Surgical History Past Surgical History: Yes: Joint Replacement - Alcohol/Substance Use Hx Alcohol Use: No - Smoking History Smoking history: Never smoked Have you smoked in the past 12 months: Yes Aproximately how many cigarettes per day: 10 Home Medications - Allergies Allergies/Adverse Reactions: Allergies Allergy/AdvReac Type Severity Reaction Status Date / Time shrimp Allergy Intermediate Rash Verified 04/03/18 13:39 - Home Medications Home Medications: Ambulatory Orders Amlodipine Besylate [Norvasc -] 10 mg PO DAILY 06/29/18 Review of Systems - Review of Systems Constitutional: reports: No Symptoms Eyes: reports: No Symptoms HENT: reports: No Symptoms Neck: reports: No Symptoms Cardiovascular: reports: No Symptoms Respiratory: reports: No Symptoms Gastrointestinal: reports: No Symptoms Genitourinary: reports: No Symptoms Breasts: reports: No Symptoms Reported Musculoskeletal: reports: No Symptoms Integumentary: reports: Erythema Neurological: reports: No Symptoms Endocrine: reports: No Symptoms Hematology/Lymphatic: reports: No Symptoms Psychiatric: reports: No Symptoms Physical Exam Vital Signs: Vital Signs Temperature 98.0 F 06/29/18 11:41 Pulse Rate 74 06/29/18 11:41 Respiratory Rate 20 06/29/18 11:41 Blood Pressure 131/85 06/29/18 11:41 O2 Sat by Pulse Oximetry (%) 99 06/28/18 20:30 Constitutional: Yes: No Distress, Calm Eyes: Yes: Conjunctiva Clear HENT: Yes: Atraumatic Neck: Yes: Supple Cardiovascular: Yes: Regular Rate and Rhythm Respiratory: Yes: CTA Bilaterally Gastrointestinal: Yes: Normal Bowel Sounds, Soft Renal/: Yes: WNL Musculoskeletal: Yes: WNL Extremities: Yes: Erythema Edema: Yes Edema: LLE: 1+, RLE: 1+ Integumentary: Yes: Erythema, Other (generalized skin changes/dryness) Wound/Incision: Yes: Other (posterior LLE mild maceration, no d/c) Labs: CBC, BMP 06/28/18 19:20 06/28/18 19:18 Laboratory Tests 06/28/18 06/28/18 06/28/18 19:10 19:18 19:18 WBC RBC Hgb Hct MCV MCH MCHC RDW Plt Count MPV Absolute Neuts (auto) Neutrophils % Lymphocytes % Monocytes % Eosinophils % Basophils % Nucleated RBC % PT with INR 11.40 INR 0.97 Sodium 141 Potassium 4.2 Chloride 108 H Carbon Dioxide 27 Anion Gap 6 L BUN 14 Creatinine 1.1 Creat Clearance w eGFR 69.50 Random Glucose 103 Calcium 8.5 Total Bilirubin 0.4 AST 25 ALT 25 Alkaline Phosphatase 61 B-Natriuretic Peptide 15.1 Total Protein 6.7 Albumin 3.5 Urine Color Yellow Urine Appearance Clear Urine pH 5.0 Ur Specific [place] 1.028 Urine Protein Negative Urine Glucose (UA) Negative Urine Ketones Trace H Urine Blood Negative Urine Nitrite Negative Urine Bilirubin Negative Urine Urobilinogen Negative Ur Leukocyte Esterase Negative 06/28/18 19:20 WBC 8.3 RBC 3.81 L Hgb 13.3 Hct 38.9 MCV 102.2 H MCH 34.9 H MCHC 34.1 RDW 12.8 Plt Count 223 MPV 8.1 Absolute Neuts (auto) 5.2 Neutrophils % 63.2 Lymphocytes % 22.3 D Monocytes % 9.6 Eosinophils % 4.2 Basophils % 0.7 Nucleated RBC % 0 PT with INR INR Sodium Potassium Chloride Carbon Dioxide Anion Gap BUN Creatinine Creat Clearance w eGFR Random Glucose Calcium Total Bilirubin AST ALT Alkaline Phosphatase B-Natriuretic Peptide Total Protein Albumin Urine Color Urine Appearance Urine pH Ur Specific [place] Urine Protein Urine Glucose (UA) Urine Ketones Urine Blood Urine Nitrite Urine Bilirubin Urine Urobilinogen Ur Leukocyte Esterase Problem List - Problems (1) Psoriasis Code(s): L40.9 - PSORIASIS, UNSPECIFIED (2) Cellulitis Code(s): L03.90 - CELLULITIS, UNSPECIFIED Qualifiers: Site of cellulitis: extremity Site of cellulitis of extremity: lower extremity Laterality: unspecified laterality Qualified Code(s): L03.119 - Cellulitis of unspecified part of limb (3) Leg swelling Code(s): M79.89 - OTHER SPECIFIED SOFT TISSUE DISORDERS (4) Osteoarthritis Code(s): M19.90 - UNSPECIFIED OSTEOARTHRITIS, UNSPECIFIED SITE Qualifiers: Osteoarthritis location: spine Spinal region: cervical Spinal osteoarthritis complication: without myelopathy or radiculopathy Qualified Code(s): M47.812 - Spondylosis without myelopathy or radiculopathy, cervical region Assessment/Plan 57 y.o male with PMH of Psoriasis previously on Humira, Hip pain s/p THR presenting with b/l LE erythema, edema, pain. DVT reportedly ruled out as outpatient. LE cellulitis Psoriasis -- will switch to Unasyn -- monitor for improvement in symptoms Will follow Thank you
[2018-06-29] MEDS ORDERED: PT OWN MED DRAWER 7, Y5N ONE (14:36)
[2018-06-29] MEDS: AMPICILLIN NA/SULBACTAM NA 3 GM in SODIUM CHLORIDE 100 ML IVPB SCH ×2 (14:42→21:01)
[2018-06-30] MEDS: AMPICILLIN NA/SULBACTAM NA 3 GM in SODIUM CHLORIDE 100 ML IVPB SCH ×4 (02:20→21:25)
[2018-06-30] MEDS ORDERED: PT OWN MED DRAWER 7, Y5N ONE ×3 (08:20→19:50)
[2018-06-30] MEDS: FUROSEMIDE 40 MG TABLET (FP) PO SCH (09:53)
[2018-06-30] MEDS: POTASSIUM CHLORIDE TABS 20 MEQ TABLET.ER (FP) PO SCH (09:54)
--- NOTE | 2018-06-30 13:05 | PN ---
Progress Note, Physician Chief Complaint: Feels better History of Present Illness: Dr Costa ID consult appreciated - Current Medication List Current Medications: Active Medications Furosemide (Lasix -) 40 mg PO DAILY [facility] Last Admin: 06/30/18 09:53 Dose: 40 mg Ampicillin Sodium/Sulbactam (Sodium 3 gm/ Sodium Chloride) 100 mls @ 200 mls/ hr IVPB Q6H-IV CELE[facility] Last Admin: 06/30/18 08:25 Dose: 200 mls/hr Potassium Chloride (K-Dur -) 20 meq PO DAILY [facility] Last Admin: 06/30/18 09:54 Dose: 20 meq - Objective Vital Signs: Vital Signs Temperature 97.7 F 06/30/18 09:00 Pulse Rate 78 06/30/18 09:00 Respiratory Rate 18 06/30/18 09:00 Blood Pressure 129/73 06/30/18 09:00 O2 Sat by Pulse Oximetry (%) 99 06/28/18 20:30 Constitutional: Yes: No Distress Eyes: Yes: WNL HENT: Yes: WNL Neck: Yes: WNL Cardiovascular: Yes: WNL Respiratory: Yes: WNL Gastrointestinal: Yes: WNL ...Rectal Exam: Yes: WNL Genitourinary: Yes: WNL Breast(s): Yes: WNL Neurological: Yes: Alert Labs: CBC, BMP 06/28/18 19:20 06/28/18 19:18 INR, PTT INR 0.97 (0.83-1.09) 06/28/18 19:18 Assessment/Plan Cellulites improving
--- NOTE | 2018-06-30 14:08 | PN ---
Progress Note, Physician History of Present Illness: Pt alert, remains afebrile. Still with LE erythema/warmth (L>R). No new events. - Current Medication List Current Medications: Active Medications Furosemide (Lasix -) 40 mg PO DAILY [facility] Last Admin: 06/30/18 09:53 Dose: 40 mg Ampicillin Sodium/Sulbactam (Sodium 3 gm/ Sodium Chloride) 100 mls @ 200 mls/ hr IVPB Q6H-IV [facility]LESTE Last Admin: 06/30/18 08:25 Dose: 200 mls/hr Potassium Chloride (K-Dur -) 20 meq PO DAILY [facility] Last Admin: 06/30/18 09:54 Dose: 20 meq - Objective Vital Signs: Vital Signs Temperature 97.7 F 06/30/18 09:00 Pulse Rate 78 06/30/18 09:00 Respiratory Rate 18 06/30/18 09:00 Blood Pressure 129/73 06/30/18 09:00 O2 Sat by Pulse Oximetry (%) 99 06/28/18 20:30 Constitutional: Yes: No Distress Cardiovascular: Yes: Regular Rate and Rhythm Respiratory: Yes: Regular Gastrointestinal: Yes: Normal Bowel Sounds, Soft Integumentary: Yes: Other (chronic b/l LE skin changes/dryness, mild erythema RLE, LLE erythema/warmth, no tenderness on palpation) Neurological: Yes: Alert Labs: CBC, BMP 06/28/18 19:20 06/28/18 19:18 INR, PTT INR 0.97 (0.83-1.09) 06/28/18 19:18 Problem List - Problems (1) Psoriasis Code(s): L40.9 - PSORIASIS, UNSPECIFIED (2) Cellulitis Code(s): L03.90 - CELLULITIS, UNSPECIFIED Qualifiers: Site of cellulitis: extremity Site of cellulitis of extremity: lower extremity Laterality: unspecified laterality Qualified Code(s): L03.119 - Cellulitis of unspecified part of limb (3) Leg swelling Code(s): M79.89 - OTHER SPECIFIED SOFT TISSUE DISORDERS (4) Osteoarthritis Code(s): M19.90 - UNSPECIFIED OSTEOARTHRITIS, UNSPECIFIED SITE Qualifiers: Osteoarthritis location: spine Spinal region: cervical Spinal osteoarthritis complication: without myelopathy or radiculopathy Qualified Code(s): M47.812 - Spondylosis without myelopathy or radiculopathy, cervical region Assessment/Plan 57 y.o male with PMH of Psoriasis previously on Humira, Hip pain s/p THR presenting with b/l LE erythema, edema, pain. DVT reportedly ruled out as outpatient. LE cellulitis Psoriasis -- continue Unasyn -- Still with some LE erythema/warmth, no draining lesions noted d/w PMD
[2018-07-01] MEDS: AMPICILLIN NA/SULBACTAM NA 3 GM in SODIUM CHLORIDE 100 ML IVPB SCH (02:24)
[2018-07-01 07:23] VITALS: BP 124/68; PULSE 71; TEMP 97.9
--- NOTE | 2018-07-01 09:24 | DS ---
Physical Examination Vital Signs: Vital Signs Temperature 97.9 F 07/01/18 06:00 Pulse Rate 71 07/01/18 06:00 Respiratory Rate 20 07/01/18 06:00 Blood Pressure 124/68 07/01/18 06:00 O2 Sat by Pulse Oximetry (%) 99 06/28/18 20:30 Findings/Remarks: Admitted with cellulites both legs,treated with IV antibiotics Improved ,psoriasis will be followed by his dyer assistant Constitutional: Yes: No Distress Eyes: Yes: WNL HENT: Yes: WNL Neck: Yes: WNL Cardiovascular: Yes: WNL Respiratory: Yes: WNL Gastrointestinal: Yes: WNL ...Rectal Exam: Yes: Deferred Edema: No Peripheral Pulses WNL: Yes Wound/Incision: Yes: Other (chronic skin changes present) Neurological: Yes: Alert ...Motor Strength: WNL Labs: CBC, BMP 06/28/18 19:20 06/28/18 19:18 Discharge Summary Reason For Visit: CELLULITIS Current Active Problems Cellulitis (Acute) Leg swelling (Acute) Psoriasis (Acute) Condition: Good - Instructions - Home Medications Comprehensive Discharge Medication List: Ambulatory Orders Amlodipine Besylate [Norvasc -] 10 mg PO DAILY 06/29/18
[2018-07-01] MEDS ORDERED: AMOX TR/POT CLAV 875MG/125MG TABLETS (FP) PO SCH (17:30)
== END 2018-07-01 10:00 | disposition home or self-care (01) | DRG 603 ==
LOC: JER 18:47 → JERBED 22:30 → J8W 06-29 03:19
PROVIDERS: ADMIT Internal Medicine; ATTEND Internal Medicine
DX: L03.116 Cellulitis of left lower limb (principal); L03.115 Cellulitis of right lower limb; L40.9 Psoriasis, unspecified; I10 Essential (primary) hypertension
CPT/HCPCS: 36415; 80053; 81003; 83880; 85025; 85610; 87040; 93005; 93010; 99285-25

== ENCOUNTER 2020-09-28 10:30 | Inpatient (IN) | payer OTHER ==
[2020-10-29 11:15] VITALS: BMI 29.7
[2020-11-02] MEDS ORDERED: CELECOXIB 200 MG CAPSULE PO ONE ×2 (07:10→07:20)
[2020-11-02] MEDS ORDERED: VANCOMYCIN 1,000 MG VIAL (RESTRICTED TO ID ONLY) ONE (07:23)
[2020-11-02] MEDS ORDERED: ceFAZolin SODIUM 1 GM VIAL ONE ×2 (07:23→07:36)
[2020-11-02] MEDS ORDERED: MIDAZOLAM HCL 2 MG/2 ML SINGLE DOSE VIAL ONE ×2 (07:25→08:42)
[2020-11-02] MEDS ORDERED: BUPIVACAINE LIPOSOME/PF (EXPAREL) 266 MG/20 ML VIAL ONE (07:26)
[2020-11-02] MEDS ORDERED: SODIUM CHLORIDE 0.9% P/F 10 ML VIAL IJ ONE (07:27)
[2020-11-02] MEDS ORDERED: BUPIVACAINE HCL/PF 0.5% (5MG/ML) 10 ML VIAL ONE ×2 (07:27→08:11)
[2020-11-02] MEDS ORDERED: LIDOCAINE HCL/PF 2% SDV 5ML VIAL ONE (07:36)
[2020-11-02] MEDS ORDERED: PROPOFOL 20 ML ONE ×2 (07:36)
[2020-11-02] MEDS ORDERED: ONDANSETRON 4 MG/2 ML VIAL IVPUSH PRN (07:57)
[2020-11-02] MEDS ORDERED: MAGNESIUM HYDROX 2400MG/30ML ORAL SUSPENSION 30 ML CUP PO PRN (07:57)
[2020-11-02] MEDS ORDERED: MAG HYDROX/AL HYDROX/SIMETH 30 ML UNIT-DOSE CUP PO PRN (07:57)
[2020-11-02] MEDS ORDERED: DEXAMETHASONE SOD PHOSPHATE 4 MG/1 ML VIAL ONE (09:20)
[2020-11-02] MEDS ORDERED: ONDANSETRON 4 MG/2 ML VIAL ONE ×2 (09:20→11:12)
[2020-11-02] MEDS ORDERED: CEFAZOLIN 2 GM in DEXTROSE 5%-WATER - 50 ML IVPB ONE (09:30)
[2020-11-02] MEDS ORDERED: TRANEXAMIC ACID 1000 MG/10 ML VIAL IVPUSH ONE (09:30)
[2020-11-02] MEDS ORDERED: PATIENT'S OWN MEDICATION (NON-FORMULARY) (Terbinafine Hcl [Terbinafine Hcl] 250 MG Tablet) PO SCH (10:00)
[2020-11-02] MEDS ORDERED: VANCOMYCIN 1,000 MG VIAL (RESTRICTED TO ID ONLY) IVPB ONE ×2 (10:05)
[2020-11-02] MEDS ORDERED: TRANEXAMIC ACID 1000 MG/10 ML VIAL ONE (10:22)
[2020-11-02] MEDS ORDERED: oxyCODONE HCL 5 MG TABLET PO PRN (10:51)
[2020-11-02] MEDS ORDERED: IBUPROFEN 800 MG/8 ML IJ IVPB PRN (10:51)
[2020-11-02] MEDS ORDERED: oxyCODONE HCL 10 MG SUSTAINED ACTING TABLET PO PRN (10:52)
[2020-11-02] MEDS ORDERED: traMADol HCL 50 MG TABLET PO PRN (10:52)
[2020-11-02] MEDS: ACETAMINOPHEN 1000 MG/100 ML VIAL (NON FORMULARY) IVPB ONE ×2 (11:12→13:25)
[2020-11-02] MEDS: SENNOSIDES/DOCUSATE COMBO (SENNA PLUS) TABLET (UD) PO SCH ×2 (12:42→21:07)
[2020-11-02] MEDS: FERROUS SO4 325 MG TABLET (FP) PO SCH (12:42)
[2020-11-02] MEDS: MULTIVITAMINS (DAILY MVI) TABLET (FP) PO SCH (12:43)
[2020-11-02] MEDS: PANTOPRAZOLE 40 MG TABLET PO SCH (12:43)
[2020-11-02] MEDS: LACTATED RINGERS SOLUTION 1,000 ML IV SCH (12:50)
[2020-11-02] MEDS: oxyCODONE HCL 5 MG TABLET PO PRN (13:53)
[2020-11-02] MEDS ORDERED: HYDROmorphone HCL/PF 1 MG/ML VIAL ONE (14:09)
[2020-11-02] MEDS ORDERED: HYDROmorphone HCL/PF 1 MG/ML VIAL IVPB PRN (14:34)
[2020-11-02] MEDS: CEFAZOLIN 2 GM/D5W 2 GM/50 ML ML IVPB SCH ×2 (15:19→23:43)
[2020-11-02] MEDS ORDERED: HYDROmorphone HCL/PF 1 MG/ML VIAL IVPB ONE (15:30)
[2020-11-02] MEDS: ACETAMINOPHEN 325 MG TABLET (FP) PO SCH ×2 (18:29→23:42)
[2020-11-02] MEDS ORDERED: PT OWN MED DRAWER 7, Y5N ONE (21:01)
[2020-11-02] MEDS: oxyCODONE HCL 10 MG SUSTAINED ACTING TABLET PO SCH (21:09)
[2020-11-02] MEDS: LATANOPROST 0.005% OPHTH SOLN 2.5ML BOTTLE OU SCH (21:10)
[2020-11-03] MEDS: LACTATED RINGERS SOLUTION 1,000 ML IV SCH (03:17)
[2020-11-03] MEDS: oxyCODONE HCL 5 MG TABLET PO PRN ×3 (05:58→18:54)
[2020-11-03] MEDS: ACETAMINOPHEN 325 MG TABLET (FP) PO SCH ×4 (05:58→23:44)
[2020-11-03 08:07] LABS: HEMATOCRIT 31.5 % (35.4-49); HEMOGLOBIN 10.9 GM/dl (11.7-16.9); MCH 34.5 pg (25.7-33.7); MCHC 34.6 g/dl (32.0-35.9); MEAN CELL VOLUME 99.9 fl (80-96); MEAN PLT VOLUME 8.5 fl (7.5-11.1); PLATELET COUNT 168 10^3/uL (134-434); RBC 3.15 M/mm3 (4.00-5.60); RDW 12.1 % (11.9-15.9); WHITE BLOOD COUNT 9.1 K/mm3 (4.0-10.8)
[2020-11-03] MEDS: ASPIRIN 325 MG TABLET PO SCH (08:43)
[2020-11-03] MEDS: FERROUS SO4 325 MG TABLET (FP) PO SCH (09:28)
[2020-11-03] MEDS: MULTIVITAMINS (DAILY MVI) TABLET (FP) PO SCH (09:29)
[2020-11-03] MEDS: amLODIPine BESYLATE 10 MG TABLET (FP) PO SCH (09:29)
[2020-11-03] MEDS: PANTOPRAZOLE 40 MG TABLET PO SCH (09:29)
[2020-11-03] MEDS: SENNOSIDES/DOCUSATE COMBO (SENNA PLUS) TABLET (UD) PO SCH ×2 (09:29→21:11)
[2020-11-03] MEDS: oxyCODONE HCL 10 MG SUSTAINED ACTING TABLET PO SCH ×2 (09:29→21:11)
[2020-11-03] MEDS: LATANOPROST 0.005% OPHTH SOLN 2.5ML BOTTLE OU SCH (21:11)
[2020-11-04] MEDS: ACETAMINOPHEN 325 MG TABLET (FP) PO SCH ×2 (06:04→12:02)
[2020-11-04 07:18] LABS: HEMATOCRIT 28.6 % (35.4-49); HEMOGLOBIN 9.6 GM/dl (11.7-16.9); MCH 33.5 pg (25.7-33.7); MCHC 33.7 g/dl (32.0-35.9); MEAN CELL VOLUME 99.4 fl (80-96); PLATELET COUNT 145 10^3/uL (134-434); RBC 2.87 M/mm3 (4.00-5.60)
[2020-11-04] MEDS: ASPIRIN 325 MG TABLET PO SCH (08:08)
[2020-11-04] MEDS: oxyCODONE HCL 10 MG SUSTAINED ACTING TABLET PO SCH (09:11)
[2020-11-04] MEDS: FERROUS SO4 325 MG TABLET (FP) PO SCH (09:11)
[2020-11-04] MEDS: amLODIPine BESYLATE 10 MG TABLET (FP) PO SCH (09:11)
[2020-11-04] MEDS: SENNOSIDES/DOCUSATE COMBO (SENNA PLUS) TABLET (UD) PO SCH (09:11)
[2020-11-04] MEDS: PANTOPRAZOLE 40 MG TABLET PO SCH (09:11)
[2020-11-04] MEDS: MULTIVITAMINS (DAILY MVI) TABLET (FP) PO SCH (09:12)
[2020-11-04] MEDS: oxyCODONE HCL 5 MG TABLET PO PRN (12:03)
[2020-11-04 13:46] VITALS: BP 113/60; PULSE 79; TEMP 98.9
== END 2020-11-04 13:40 | disposition home health service (06) | DRG 470 ==
LOC: FM/S 11-02 06:57
PROVIDERS: ADMIT Orthopaedic Surgery; ATTEND Orthopaedic Surgery
PROC: 8E0Y0CZ Robotic Assisted Procedure of Lower Extremity, Open Approach (ICD-10-PCS; 2020-11-02)
PROC: 0SRD0JA Replacement of Left Knee Joint with Synthetic Substitute, Uncemented, Open Approach (ICD-10-PCS; principal; 2020-11-02 09:01)
DX: M17.12 Unilateral primary osteoarthritis, left knee (principal); I10 Essential (primary) hypertension
CPT/HCPCS: 36415; 73560-TC-LT-FY; 85027; 94760; 97010-GP; 97116-GP; 97162-GP; J0131

== ENCOUNTER 2020-11-09 03:07 | Emergency (ER) | payer OTHER ==
[2020-11-09 03:15] VITALS: BP 159/78; PULSE 104; TEMP 99.2; BMI 29.5
[2020-11-09] MEDS ORDERED: MAGNESIUM CITRATE 300 ML BOTTLE PO ONE (03:42)
[2020-11-09] MEDS ORDERED: SODIUM PHOSPHATE/NA BIPHOS 133 ML ENEMA PR ONE (03:42)
[2020-11-09] MEDS ORDERED: MAGNESIUM CITRATE 300 ML BOTTLE ONE (04:02)
== END 2020-11-09 04:17 | disposition home or self-care (01) ==
LOC: FER 03:07
DX: K59.03 Drug induced constipation (principal)
CPT/HCPCS: 99283-25

== ENCOUNTER 2020-12-08 04:31 | Day surgery (SDC) | payer OTHER ==
[2020-12-08 10:35] VITALS: BMI 29.5
[2020-12-08] MEDS ORDERED: MIDAZOLAM HCL 2 MG/2 ML SINGLE DOSE VIAL ONE (10:52)
[2020-12-08] MEDS ORDERED: KETOROLAC TROMETHAMINE 30 MG/1 ML VIAL ONE (11:24)
[2020-12-08] MEDS ORDERED: ONDANSETRON 4 MG/2 ML VIAL IVPUSH PRN (11:38)
[2020-12-08] MEDS ORDERED: oxyCODONE HCL 5 MG TABLET PO PRN (11:38)
[2020-12-08] MEDS ORDERED: ACETAMINOPHEN 325 MG TABLET (FP) PO PRN (11:38)
[2020-12-08] MEDS ORDERED: LACTATED RINGERS SOLUTION 1,000 ML IV SCH (11:45)
[2020-12-08 13:11] VITALS: BP 110/64; PULSE 75; TEMP 98.1
== END 2020-12-08 14:21 | disposition home or self-care (01) ==
LOC: JASU-SURG 04:31
PROVIDERS: ATTEND Orthopaedic Surgery
PROC: 0SNDXZZ Release Left Knee Joint, External Approach (ICD-10-PCS; principal; 2020-12-08 10:15)
DX: M24.662 Ankylosis, left knee (principal); Z96.652 Presence of left artificial knee joint; M17.12 Unilateral primary osteoarthritis, left knee
CPT/HCPCS: 94760; C9803; U0003; U0005

== ENCOUNTER 2023-04-12 03:32 | Observation (INO) | payer OTHER ==
[2023-04-12 03:41] VITALS: RESP 18
[2023-04-12] MEDS ORDERED: KETOROLAC TROMETHAMINE 60 MG/2 ML VIAL IM ONE (04:02)
[2023-04-12] MEDS ORDERED: KETOROLAC TROMETHAMINE 60 MG/2 ML VIAL ONE (04:07)
[2023-04-12] MEDS ORDERED: ACETAMINOPHEN 500 MG TABLET (FP) PO ONE (05:42)
[2023-04-12] MEDS ORDERED: ACETAMINOPHEN 500 MG TABLET (FP) ONE (05:50)
[2023-04-12] MEDS ORDERED: LIDOCAINE 5% TOPICAL PATCH TP ONE (07:27)
[2023-04-12] MEDS ORDERED: morphine CARPU-JECT 4 MG/1 ML DISP.SYRIN IVPUSH ONE (07:27)
[2023-04-12 08:23] LABS: HEMATOCRIT 38.3 % (35.4-49); HEMOGLOBIN 12.7 G/dL (11.7-16.9); MCHC 33.1 g/dl (32.0-35.9); MEAN CELL VOLUME 99.8 fl (80-96); MEAN PLT VOLUME 8.7 fl (7.5-11.1); PLATELET COUNT 187.9 10^3/uL (134-434); RBC 3.84 10^6/uL (4.00-5.60); RDW 13.1 % (11.9-15.9); WHITE BLOOD COUNT 6.6 10^3/uL (4.0-10.8)
[2023-04-12 08:30] LABS: ALBUMIN 3.6 g/dl (3.4-5.0); BILIRUBIN,TOTAL 0.9 mg/dl (0.2-1); CALCIUM 8.8 mg/dl (8.5-10.1); CREATININE 0.9 mg/dl (0.6-1.3); POTASSIUM 4.2 mmol/L (3.5-5.1); TOT PROT 5.7 g/dl (6.4-8.2)
[2023-04-12 08:38] VITALS: BP 144/76; PULSE 71; TEMP 98.9
[2023-04-12 10:05] LABS: PLATELET ESTIMATE ADEQUATE
[2023-04-12 10:34] VITALS: BMI 30.1
== END 2023-04-12 13:49 | disposition home or self-care (01) ==
LOC: FER 03:32 → FM/S 08:12
PROVIDERS: ADMIT Internal Medicine; ATTEND Internal Medicine
PROC: 3E0233Z Introduction of Anti-inflammatory into Muscle, Percutaneous Approach (ICD-10-PCS; principal; 2023-04-12)
DX: M54.32 Sciatica, left side (principal); Z96.643 Presence of artificial hip joint, bilateral; Z96.652 Presence of left artificial knee joint; M19.90 Unspecified osteoarthritis, unspecified site; L40.9 Psoriasis, unspecified; F17.210 Nicotine dependence, cigarettes, uncomplicated
CPT/HCPCS: 36415; 71045-TC-FY; 72170-TC-FY; 73502-TC-LT-FY; 80053; 85027; 85651; 86140; 93005; 99285-25; G0378